=== PATIENT | female | born 1990 | race Caucasian/White ===

== ENCOUNTER 2023-07-06 18:51 | Emergency (ER) | payer SELFPAY ==
[~2023-07-06] VITALS: Ht 162.6 cm; Wt 73.0 kg
[2023-07-06 19:08] VITALS: BP 111/66; PULSE 110; RESP 24; O2SAT 95
[2023-07-06] MEDS ORDERED: SODIUM CHLORIDE 0.9% 1,000 ML IV ONE (20:00)
[2023-07-06 20:57] LABS: Basophils # (auto) 0 10 ^3/uL (0-0.2); Basophils % (auto) 0.2 % (0.0-2.0); Eosinophils # (auto) 0 10 ^3/uL (0-0.8); Eosinophils % (auto) 0.1 % (0.0-7.0); Hematocrit 41.5 % (36.0-46.0); Hemoglobin 13.7 g/dL (12.2-16.2); Lymphocytes # (auto) 1.3 10 ^3/uL (0.4-5.4); Lymphocytes % (auto) 12.4 % (10.0-50.0); Mean Corpuscular Hemoglobin 31.2 pg (28.0-32.0); Mean Corpuscular Hgb Conc. 32.9 g/dL (32.0-36.0); Mean Corpuscular Volume 94.8 fL (80.0-100.0); Monocytes # (auto) 0.2 10 ^3/uL (0-1.3); Monocytes % (auto) 1.9 % (0.0-12.0); Neutrophils # (auto) 9.1 10 ^3/uL (1.6-8.6); Neutrophils % (auto) 85.4 % (37.0-80.0); Red Blood Cells 4.38 10^6/uL (4.0-5.20); Red Cell Distribution Width 13.6 % (11.8-14.3); White Blood Cell 10.7 10^3/uL (4.4-10.8)
[2023-07-06 21:28] LABS: Alanine Aminotransferase 15 U/L (7-40); Albumin 4.6 g/dL (3.2-4.8); Alkaline Phosphatase 65 U/L (46-116); Anion Gap 12 (5-15); Aspartate Aminotransferase 10 U/L (13-40); BUN/Creatinine Ratio 15.1 (10.0-20.0); Bilirubin, Total 0.4 mg/dL (0.2-1.0); Blood Urea Nitrogen 8 mg/dL (9-23); Calcium 8.6 mg/dL (8.5-10.1); Carbon Dioxide 20 mmol/L (20-30); Chloride 111 mmol/L (98-107); Glucose 98 mg/dL (74-106); Potassium 3.5 mmol/L (3.5-5.1); Sodium 143 mmol/L (136-145); Total Protein 7.2 g/dL (5.7-8.2)
[2023-07-06 21:36] LABS: Blood Alcohol 290.6 mg/dL (<10)
== END 2023-07-06 22:24 | disposition left against medical advice (07) ==
LOC: EDBD 18:51 → ER 18:55
DX: F19.90 Other psychoactive substance use, unspecified, uncomplicated (principal); F10.129 Alcohol abuse with intoxication, unspecified; Y90.8 Blood alcohol level of 240 mg/100 ml or more
CPT/HCPCS: 36415; 80053; 80320; 83880; 84484; 85025; 85379

== ENCOUNTER 2024-05-13 08:37 | Emergency (ER) | payer BC, OTHER ==
[~2024-05-13] VITALS: Ht 152.4 cm; Wt 74.0 kg
[2024-05-13 09:05] VITALS: BP 108/64; PULSE 84; RESP 18; TEMP 99; O2SAT 98
--- NOTE | 2024-05-13 10:03 | DVH ---
XY R HAND 3 VIEW XRAY, INDICATION: crushed injury to 2nd phalanx TECHNICAL DATA: Frontal, oblique and lateral views were obtained of the right hand. COMPARISON: None FINDINGS: No fracture is identified. Joint spaces are maintained. Alignment is anatomic. Soft tissues are withi n normal limits. IMPRESSION: 1. No acute fracture or dislocation of the right hand.
--- NOTE | 2024-05-13 10:21 | ED.PDOC ---
HPI Comments THIS IS A PLEASANT 34-YEAR-OLD FEMALE WITH NO MHX THAT PRESENTS FOR A LACERATION AFTER A CRUSHED INJURY TO THE RIGHT INDEX FINGER. INJURY OCCURRED 2 HOURS AGO DISTAL TO THE VOLAR ASPECT OF THE DIP. DENIES NUMBNESS OF THE AFFECTED HAND LAST TETANUS THREE YEARS AGO Chief Complaint: Upper Extremity Time Seen by MD: 08:52 Primary Care Provider: none Reviewed Notes: Nurses Notes, Medications, Allergies Allergies: Coded Allergies: NO KNOWN ALLERGIES (Unverified , 07/06/23) Information Source: Patient Mode of Arrival: Ambulatory Complexity: Intermediate Laceration Length (cm): 2 Past Medical History PAST MEDICAL HISTORY: Denies Surgical History: Denies all surgeries FEED IN WORKER History: No Pertinent FEED IN WORKER History Family History Family History: Reviewed,noncontributory to illness, No family hx of Cancer, No family hx of DM, No family hx of Heart ayden, No family hx of HTN, No family hx ofKidney ayden, No family hx of Liver ayden, No family hx of Lung ayden, No family hx of Stroke Social History Smoker: Non-Smoker Alcohol: Heavy Drugs: Other Lives In: Home All Other Systems: Reviewed and Negative (PER HPI) Physical Exam General Appearance: No Apparent Distress, Normal HEENT: Normal ENT Inspection, Pharynx Normal, TMs Normal Neck: Full Range of Motion, Non-Tender, Normal, Normal Inspection Respiratory: Chest Non-Tender, Lungs Clear, No Accessory Muscle Use, No Respiratory Distress, Normal Breath Sounds Cardiovascular: No Murmur, No Gallop, Regular Rate/Rhythm Breast Exam: Deferred Gastrointestinal: No Organomegaly, Non Tender, No Pulsatile Mass, Normal Bowel Sounds, Soft Genitalia: Deferred Pelvic: Deferred Rectal: Deferred Extremities: No calf tenderness, Normal capillary refill, Normal inspection, Normal range of motion, Non-tender, No pedal edema Musculoskeletal : Apperance: Normal Neurologic: Alert, No Motor Deficits, Normal Affect, Normal Mood, No Sensory Deficits Cerebellar Function: Normal Reflexes: Normal Skin: Dry, Normal Color, Warm Lymphatic: No Adenopathy Was a procedure done? Was a procedure done?: Yes Sedation Sedation?: No Laceration Repair : Location R INDEX Length 2 Anesthetic: Lidocaine Laceration Repair Prep: Saline, Betadine Laceration Repair Wound Comple: epidermis/dermis repair Laceration Repair: Simple, Bacitracin, Non-adherent gauze, Gauze Informed consent obtained: Yes Risks, benefits, and alternati: Yes Differential diagnosis Generic Laceration: Abrasion/Contusion, Laceration, Avulsion X-Ray, Labs, Meds, VS Vital Signs Date Time Temp Pulse Resp B/P (MAP) Pulse Ox O2 Delivery O2 Flow Rate FiO2 05/13/24 09:05 84 18 98 Room Air 05/13/24 09:05 99.0 84 18 108/64 (79) 98 99.0 05/13/24 08:49 99.0 84 18 108/64 (79) 98 99.0 Current Medications Medications (Trade) Dose Ordered Sig/Víctor Route Start Time Stop Time Status Last Admin Neomycin/ Polymyxin/ Bacitracin (Triple Antibiotic) 1 applic ONCE ONCE TOP 05/13/24 10:30 05/13/24 10:52 DC 05/13/24 10:59 Lidocaine HCl (Xylocaine 1%) 4 ml ONCE ONCE ID 05/13/24 10:30 05/13/24 10:52 DC 05/13/24 11:00 PATIENT: JANETT LOVECCT: [id number]: [id number] : 1990 LOC: ER ROOM / BED: / AGE / SEX: 34 / F ADM STATUS: REG ER SERVICE ORDERING PHYSICIAN: FLACA FERREIRA NP PROCEDURE(s): RHAN - R HAND 3 VIEW XRAY REASON: crushed injury to 2nd phalanx ORDER NUMBER(s): [id number], ACCESSION NUMBER(s): [id number] XY R HAND 3 VIEW XRAY, INDICATION: crushed injury to 2nd phalanx TECHNICAL DATA: Frontal, oblique and lateral views were obtained of the right hand. COMPARISON: None FINDINGS: No fracture is identified. Joint spaces are maintained. Alignment is anatomic. Soft tissues are within normal limits. IMPRESSION: 1. No acute fracture or dislocation of the right hand. ATED BY: NORMA ASHBY MD DICTATED DATE/TIME: 05/13/24 1000 SIGNED BY: NORMA ASHBY MD SIGNED DATE/TIME: 05/13/24 1000 CC: X-Ray, Labs, Meds, VS Comment THE SKIN EDGES OF THE LACERATION WERE INFILTRATED WITH 1% LIDOCAINE THE SKIN SURROUNDING THE LACERATION WAS SCRUBBED WITH BETADINE SOAKED STERILE GAUZE THE LACERATION WAS IRRIGATED UNDER HIGH-PRESSURE WITH A 60 ML SYRINGE A TOTAL OF 1L STERILE WATER WAS USED. INCLUDING DILUTED BETADINE SOLUTION THE LACERATION WAS PREPPED IN STERILE FASHION WITH STERILE DRAPES ON EXAMINATION UNDER DIRECT LIGHT, THERE WAS NO FOREIGN BODY SEEN THE LACERATION WAS REPAIRED IN SIMPLE INTERRUPTED TECHNIQUE THERE WAS NO CONTINUING BLEEDING ON REPAIR. THERE WERE NO COMPLICATIONS RELATED TO REPAIR EDUCATION AND FOLLOW-UP INSTRUCTIONS PROVIDED WOUND CHECK IN 2 DAYS RETURN SOONER FOR SIGNS OF INFECTION SUCH FEVERS, INCREASED PAIN, REDNESS, GREEN, YELLOW DISCHARGE, OR ANY CONCERNS KEEP WOUND DRY FOR 24 TO 48 HOURS; DRY DRESSING MAY BE CHANGED PROTECT FROM SUNLIGHT AND KEEP AREA CLEAN AND DRY. USE SOAP AND WATER IF IT GETS DIRTY HIGH RISK OF POSSIBLE SCARRING AND EDUCATION PROVIDED ON WAYS TO MINIMIZE SCARRING AFTER WOUND HEALS ALSO PROVIDED EDUCATION ON POSSIBLE COMPLICATIONS POST PROCEDURE INCLUDING WOUND DEHISCENCE, INFECTION, ETC. Time of 1ST Reevaluation: 10:14 Reevaluation 1ST: Improved Patient Education/Counseling: Diagnosis, Treatment Family Education/Counseling: Diagnosis, Treatment Departure 1 Departure Time of Disposition: 11:46 Impression: Primary Impression: Laceration Disposition: 01 HOME / SELF CARE / HOMELESS Condition: Stable Discharged With: Self Critical Care Note Critical Care Time?: No Stability Stability form required: No Heart Score Heart Score: Heart Score Response (Comments) Value History N/A 0 EKG N/A 0 Age N/A 0 Risk Factors N/A 0 Troponin N/A 0 Total 0 FLACA FERREIRA NP May 13, 2024 10:21
[2024-05-13] MEDS: NEOMYCIN-BACITRACIN-POLYM UNITDOSE PKG TOP OINT TOP ONE (10:59)
[2024-05-13] MEDS: LIDOCAINE 1% HCL (LOCAL ANESTH.) INJ 20ML MDV ID ONE (11:00)
== END 2024-05-13 11:47 | disposition home or self-care (01) ==
LOC: ER 08:37
DX: S61.210A Laceration without foreign body of right index finger without damage to nail, initial encounter (principal); W23.0XXA Caught, crushed, jammed, or pinched between moving objects, initial encounter; Y93.89 Activity, other specified; Y92.89 Other specified places as the place of occurrence of the external cause; Y99.8 Other external cause status
CPT/HCPCS: 12001; 73130; 99283; J2003